=== PATIENT | female | born 1995 | race African-American/Black ===

== ENCOUNTER 2017-01-06 01:21 | Emergency (ER) | payer SELFPAY ==
[~2017-01-06] VITALS: Ht 162.6 cm; Wt 52.2 kg
[2017-01-06 01:40] VITALS: BP 99/64
[2017-01-06] MEDS ORDERED: PROZAC10 MG ORAL (01:41)
[2017-01-06 02:06] LABS: KETONES,URINE NEGATIVE (NEGATIVE); LEUKOCYTE ESTERASE ,URINE 2+ (NEGATIVE); NITRITE,URINE POSITIVE (NEGATIVE); PH,URINE 5 (4.5-8.0); PROTEIN,URINE 1+ (NEGATIVE); UROBILINOGEN,URINE NORMAL MG/DL (0.0-1.0)
[2017-01-06 02:12] LABS: APPEARANCE,URINE SLIGHTLY CLOUDY
[2017-01-06 02:13] LABS: BACTERIA,URINE MANY /HPF; ICTOTEST NEGATIVE; RBC,URINE 0-2 /HPF (0 - 2); SQUAMOUS EPITHELIAL CELL,UR FEW /LPF (NONE/OCC)
[2017-01-06] MEDS ORDERED: NITROFURANTOIN100 M2 ORAL (02:19)
[2017-01-06] MEDS ORDERED: oxyCODONE HCL/Acetaminophen 5/325mg ORAL ONE (02:45)
[2017-01-06 03:00] VITALS: BP 101/68
--- NOTE | 2017-01-06 05:44 | Emergency Room Report ---
History of Present Illness General Chief Complaint: Female Urogenital Problems Source: Patient Present Illness HPI 21YOF with 5 days dysuria, polyuria Denies abd pain, nausea/vomiting, fever/chills, vaginal discharge, history of STDs Denies chance of being Allergies: Coded Allergies: No Known Allergies (Unverified , 01/06/17) Patient History Past Medical History: none Past Surgical History: none Pertinent Family History: none Social History: Denies: smoking, alcohol use, drug use Last Menstrual Period: "IM NOT SURE" Now: No Immunizations: UTD Reviewed Nursing Documentation: PMH: Agreed, PSxH: Agreed Review of Systems All Other Systems: negative except mentioned in HPI Physical Exam Vital Signs Date Time Temp Pulse Resp B/P (MAP) Pulse Ox O2 Delivery O2 Flow Rate FiO2 01/06/17 01:35 98.2 80 18 99/64 100 Room Air Sp02 EP Interpretation: reviewed, normal General Appearance: normal inspection, well appearing, no apparent distress, alert Head: atraumatic ENT: normal ENT inspection, hearing grossly normal, normal voice Neck: normal inspection, full range of motion, supple, no bony tend Respiratory: normal inspection, lungs clear, normal breath sounds, no respiratory distress, no retraction, no wheezing Cardiovascular #1: regular rate, rhythm, no edema Gastrointestinal: normal inspection, normal bowel sounds, non tender, soft, no guarding, no hernia Genitourinary: no CVA tenderness Musculoskeletal: normal inspection, back normal, normal range of motion, Shelby' s Sign negative Neurologic: normal inspection, alert, oriented x3, responsive, 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, motor strength/tone normal, speech normal Psychiatric: normal inspection, judgement/insight normal, mood/affect normal Skin: normal inspection, normal color, no rash Medical Decision Making Diagnostic Impression: Primary Impression: Dysuria Additional Impression: UTI (urinary tract infection) Qualified Codes: N30.00 - Acute cystitis without hematuria ER Course Urine preg negative UA with + bacteria, WBCs Rx macrobid DC home Last Vital Signs Date Time Temp Pulse Resp B/P (MAP) Pulse Ox O2 Delivery O2 Flow Rate FiO2 01/06/17 03:00 98.2 75 15 101/68 100 Room Air Status: improved Disposition: HOME, SELF-CARE Condition: Improved Scripts Nitrofurantoin Monohyd/M-Cryst* (MACROBID 100 MG*) 100 Mg Capsule 100 MG ORAL EVERY 12 HOURS for 7 Days, #14 CAP Prov: RUSSEL EDWARDS M.D. 01/06/17 Referrals: NOT CHOSEN IPA/,REFERRING (PCP) Patient Instructions: Urinary Tract Infection RUSSEL EDWARDS M.D. Jan 06, 2017 05:44
== END 2017-01-06 03:00 | disposition home or self-care (01) ==
LOC: EMR 01:50
DX: N39.0 Urinary tract infection, site not specified (principal)
CPT/HCPCS: 81003; 81025; 87086; 87181; 99283